=== PATIENT | male | born 1940 | race Asian ===

== ENCOUNTER 2019-09-05 10:28 | Emergency (ER) | payer OTHER ==
[~2019-09-05] VITALS: Ht 170.2 cm; Wt 62.1 kg
--- NOTE | 2019-09-05 10:28 | NUR ---
BROUGHT BACK TO BED #7 VIA WHEELCHAIR, PLACED IN BED #7 AND TRIAGED. REPORT GIVEN TO QASIM
[2019-09-05 10:29] VITALS: BP_SYST 75
--- NOTE | 2019-09-05 10:40 | NUR ---
Patient arrived via POV, AAOX4, and weak. Patients daughter and accompanies patient. Patient notes dizziness, weakness, and sleepiness. Patients family states they were going to check him into [facility] for detox, but he was feeling faint and dizzy. His blood pressure upon triage was 75/44. Patient daughter states he was just in [facility] for a syncopal episode, approximately 2 weeks ago, his blood pressure was low at the time of admission there as well. Patient has been taking his prescribed prescribed Dilaudid 8mg approximately every 4 hours instead of the prescribed q8h. Patients daughter states she is concerned regarding her fathers status, and he has not been taking his blood pressure medicines for awhile, patient has not had any changes in medications for pain.
--- NOTE | 2019-09-05 10:41 | NUR ---
ER at bedside examining patient.
[2019-09-05] MEDS ORDERED: NACL 0.9% 1,000 ML IV ONE (10:54)
[2019-09-05 11:18] LABS: BASOPHILS % (AUTO) 0.9 % (0.0-2.0); EOSINOPHILS # (AUTO) 0.1 K/uL (0.0-0.4); EOSINOPHILS % (AUTO) 1.2 % (0.0-4.0); HEMATOCRIT 36.6 % (36-54); HEMOGLOBIN 11.8 g/dL (14.0-18.0); LYMPHOCYTES # (AUTO) 0.8 K/uL (1.0-5.5); LYMPHOCYTES % (AUTO) 17.2 % (20.5-51.5); MEAN CORPUSCULAR HEMOGLOBIN 31 pg (27-31); MEAN CORPUSCULAR HGB CONC 32 % (32-36); MEAN CORPUSCULAR VOLUME 96 fL (79.0-98.0); MONOCYTES # (AUTO) 0.2 K/uL (0.0-1.0); MONOCYTES % (AUTO) 4.5 % (1.7-9.3); NEUTROPHILS # (AUTO) 3.4 K/uL (1.8-7.7); NEUTROPHILS % (AUTO) 76.2 % (40.0-70.0); PLATELET COUNT (AUTO) 184 K/uL (130-430); WHITE BLOOD COUNT (AUTO) 4.4 K/uL (4.8-10.8)
[2019-09-05 11:29] LABS: ANION GAP 5 (5-15); CALCIUM 8.7 mg/dL (8.4-11.0); CHLORIDE 104 mmol/L (98-107); CREATININE 1.89 mg/dL (0.55-1.30); GLUCOSE 142 mg/dL (70-99); POTASSIUM 4.9 mmol/L (3.5-5.1); SODIUM SERUM 139 mmol/L (136-145); UREA NITROGEN, BLOOD 23 mg/dL (8-21)
[2019-09-05 11:31] LABS: PROTHROMBIN TIME 10.3 SECS (9.5-12.5)
[2019-09-05 11:33] LABS: CHOLESTEROL 183 mg/dL (<200); HDL CHOLESTEROL 66 mg/dL (>45); LDL CHOLESTEROL 96 mg/dL (<100); TRIGLYCERIDES 81 mg/dL (30-150)
[2019-09-05 11:35] LABS: ALANINE AMINOTRANSFERASE 12 U/L (12-78); ALBUMIN 3.5 g/dL (3.4-4.8); AMYLASE 73 U/L (0-100); ASPARTATE AMINOTRANSFERASE 7 U/L (10-37); LIPASE 114 U/L (73-393); TOTAL BILIRUBIN 0.4 mg/dL (0.0-1.0)
[2019-09-05 11:44] LABS: ACETAMINOPHEN < 1 ug/mL (1-30); ALCOHOL, BLOOD < 3 mg/dL (<10)
--- NOTE | 2019-09-05 11:58 | NUR ---
Patient requesting food, called for patient a tray. and daughter left for lunch, they will return at a later time. Patients blood pressure is normal, sitting upright at bedside.
[2019-09-05 12:42] LABS: BILIRUBIN,URINE NEGATIVE (NEGATIVE); BLOOD, URINE NEGATIVE (NEGATIVE); CLARITY/URINE CLEAR (CLEAR); COLOR,URINE YELLOW (YELLOW); GLUCOSE,URINE NEGATIVE (NEGATIVE); KETONES,URINE NEGATIVE (NEGATIVE); LEUKOCYTE ESTERASE ,URINE NEGATIVE (NEGATIVE); NITRITE, URINE NEGATIVE (NEGATIVE); PH,URINE 6.5 (5.0-8.0); PROTEIN URINE 1+ (NEGATIVE); UROBILINOGEN,URINE 0.2 (0.2-1.0)
[2019-09-05 12:46] LABS: BACTERIA,URINE RARE /HPF (None Seen); MUCUS,URINE 2+ /LPF (None Seen); RBC,URINE 0-3 /HPF (0-3); WBC,URINE 0-3 /HPF (0-3)
[2019-09-05 12:51] LABS: BARBITURATE, URINE NEGATIVE (NEG <=200); BENZODIAZEPINE, URINE NEGATIVE (NEG <=150); CANNABINOID, URINE NEGATIVE (NEG <=50); COCAINE, URINE NEGATIVE (NEG <=150); METHAMPHETAMINES SCREEN,URINE NEGATIVE (NEG <=500); OPIATE, URINE POSITIVE (NEG <=100); PHENCYCLIDINE SCREEN,URINE NEGATIVE (NEG <=25); UR TRICYCLIC ANTIDEPRESSANTS NEGATIVE (NEG <=300); URINE AMPHETAMINE NEGATIVE (NEG <=500); URINE METHADONE NEGATIVE (NEG <=200); URINE OXYCODONE SCREEN NEGATIVE (NEG <=100); URINE PROPOXYPHENE SCREEN NEGATIVE (NEG <=300)
[2019-09-05 13:12] VITALS: BP_SYST 103
--- NOTE | 2019-09-05 13:13 | NUR ---
Patient given written and verbal discharge instructions and verbalizes understanding. ER MD discussed with patient the results and treatment provided. Patient in stable condition. ID arm band removed Rx of NONE given. Patient educated on pain management and to follow up with PMD. Pain Scale 0/10. Opportunity for questions provided and answered. Medication side effect fact sheet provided. Addendum: 09/05/19 at 1330 by RUBI IV REMOVED WITH CATHETER INTACT. BANDAGE PLACED. ESCORTED TO CAR VIA WHEELCHAIR BY MARK HURT
== END 2019-09-05 13:12 | disposition home or self-care (01) ==
LOC: SED 10:28
DX: T40.2X1A Poisoning by other opioids, accidental (unintentional), initial encounter (principal); I10 Essential (primary) hypertension; R55 Syncope and collapse; R42 Dizziness and giddiness; Y92.89 Other specified places as the place of occurrence of the external cause
CPT/HCPCS: 36415; 71045; 80053; 80061; 80307; 81000; 82150; 82550; 83036; 83690; 83880; 84484; 85025; 85610; 85730; 93005; 96360; 99285; G0480; G0481; G0482; J7030